=== PATIENT | female | born 1955 | race Hispanic/Latino ===

== ENCOUNTER 2022-07-14 15:58 | Emergency (ER) | payer OTHER, MEDICARE ==
[~2022-07-14] VITALS: Ht 157.5 cm; Wt 56.7 kg
[2022-07-14 16:31] LABS: BASOPHILS % (AUTO) 0.5 % (0.0-5.0); HEMATOCRIT 43.1 % (36-48); LYMPHOCYTES % (AUTO) 19.5 % (21.0-51.0); MEAN CORPUSCULAR HEMOGLOBIN 30.9 pg (27.0-33.0); NEUTROPHILS % (AUTO) 75.7 % (40.0-77.0); PLATELET COUNT (AUTO) 250 K/uL (130-400); RED BLOOD CELL COUNT(AUTO) 5.01 MIL/uL (4.00-5.50); RED CELL DISTRIBUTION WIDTH 12.5 % (11.0-15.5); WHITE BLOOD COUNT (AUTO) 10.8 K/uL (4.8-10.8)
[2022-07-14 16:51] LABS: ALBUMIN 3.8 g/dL (3.5-5.0); CREATININE 0.8 mg/dL (0.5-1.5); POTASSIUM 2.9 mmol/L (3.5-5.1); TOTAL PROTEIN, SERUM 8.3 g/dL (6.0-8.3)
[2022-07-14] MEDS ORDERED: LOPERAMIDE HCL 2 MG CAP PO ONE (17:00)
[2022-07-14] MEDS ORDERED: ONDANSETRON 4MG INJ IVP ONE (17:00)
[2022-07-14] MEDS ORDERED: LACTATED RINGERS 1000ML 1,000 ML IV ONE (17:00)
[2022-07-14] MEDS ORDERED: KCL 20 MEQ ERTAB PO ONE (17:00)
[2022-07-14 17:02] LABS: APPEARANCE,URINE CLOUDY (CLEAR); BILIRUBIN,URINE NEGATIVE (NEGATIVE); COLOR,URINE YELLOW (YELLOW); GLUCOSE, URINE (UA) 30 mg/dL (NEGATIVE); KETONES,URINE 20 mg/dL (NEGATIVE); LEUKOCYTE ESTERASE ,URINE NEGATIVE Leu/uL (NEGATIVE); NITRATE,URINE NEGATIVE (NEGATIVE); OCCULT BLOOD,URINE NEGATIVE (NEGATIVE); PH,URINE 6.5 (5.0-8.0); PROTEIN,URINE 20 mg/dL (NEGATIVE); UROBILINOGEN,URINE 0.2 mg/dL (0.2-1.0)
[2022-07-14 17:05] LABS: BACTERIA,URINE RARE /HPF (None Seen); MUCUS,URINE FEW LPF (None Seen); OTHER CASTS, URINE 3 /LPF (None Seen); RBC,URINE 0-1 /HPF (0-1); YEAST,URINE BUDDING FEW /HPF (None Seen)
[2022-07-14 17:19] VITALS: BP 165/66
[2022-07-14] MEDS ORDERED: ONDA4TAB10 PO (18:03)
== END 2022-07-14 18:17 | disposition home or self-care (01) ==
LOC: EDH 15:58
DX: K52.9 Noninfective gastroenteritis and colitis, unspecified (principal); E87.6 Hypokalemia; E86.0 Dehydration; E11.9 Type 2 diabetes mellitus without complications; E78.00 Pure hypercholesterolemia, unspecified; I10 Essential (primary) hypertension; Z86.73 Personal history of transient ischemic attack (TIA), and cerebral infarction without residual deficits; Z90.49 Acquired absence of other specified parts of digestive tract
CPT/HCPCS: 99284; 96374; 96361; 83735; 80053; 83690; 85025; 81001; 36415; 93005; J7120; J2405